=== PATIENT | male | born 1970 | race African-American/Black ===

== ENCOUNTER 2016-10-12 16:51 | Emergency (ER) | payer OTHER ==
[~2016-10-12] VITALS: Ht 177.8 cm; Wt 86.2 kg
--- NOTE | 2016-10-12 19:32 | ED ANKLE/FOOT INJURY COMPLAINT ---
History of Present Illness General Chief Complaint: Foot or Ankle Injury Stated Complaint: SORE TO R FOOT Source: patient Exam Limitations: no limitations Vital Signs & Intake/Output Vital Signs & Intake/Output Vital Signs Date Time Temp Pulse Resp B/P B/P Pulse O2 O2 Flow FiO2 Mean Ox Delivery Rate 10/12 2130 96.8 68 14 152/92 10/127 142/88 10/12 1917 99 Room Air 10/12 1658 98.4 103 18 176/100 99 Room Air ED Intake and Output 10/13 0000 10/12 1200 Intake Total Output Total Balance Patient 190 lb Weight Weight Reported by Patient Measurement Method Allergies Coded Allergies: No Known Allergies (10/12/16) Reconcile Medications Doxycycline Hyclate 100 MG TABLET 1 TAB PO BID TOE PAIN Ibuprofen 800 MG TABLET 1 TAB PO TID PAIN Triage Note: PT TO ED FOR A "SORE TO MY BIG RIGHT TOE FOR A FEW WEEKS". Triage Nurses Notes Reviewed? yes Occurred: just prior to arrival Duration: day(s):, constant, continues in ED Timing: recent history Severity: moderate, severe Pain/Injury Location: Right: 1st toe. No Modifying Factors: none HPI: 46-year-old male comes into emergency room with complaints of right great toe pain. Symptoms of a going on for a few weeks. Patient reports that he does not recall any trauma. Denies any fever chills vomiting. Denies any prior history of gout. Nothing seems to make the symptoms better or worse. Denies any other associated symptoms. 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 He did not have any trauma to this area. He denies any surgeries to this area. He had to have surgery to remove part of the bone. (KATHLEEN IRELAND) Past History Travel History Traveled to [place] past 21 day No Medical History Any Pertinent Medical History? none Neurological: NONE EENT: NONE Cardiovascular: hypertension Respiratory: NONE Gastrointestinal: NONE Hepatic: NONE Renal: NONE Musculoskeletal: NONE Psychiatric: NONE Endocrine: diabetes Blood Disorders: NONE Cancer(s): NONE Other Medical Hx: osetmyelitis right clavicle Surgical History Surgical History: none Psychosocial History What is your primary language Georgian Tobacco Use: Never used ETOH Use: occasional use Illicit Drug Use: denies illicit drug use Family History Hx Contributory? No (KATHLEEN IRELAND) Review of Systems Review of Systems Constitutional: Reports: no symptoms. EENTM: Reports: no symptoms. Respiratory: Reports: no symptoms. Cardiovascular: Reports: no symptoms. GI: Reports: no symptoms. Genitourinary: Reports: no symptoms. Musculoskeletal: Reports: see HPI. Skin: Reports: no symptoms. Neurological/Psychological: Reports: no symptoms. Hematologic/Endocrine: Reports: no symptoms. Immunologic/Allergic: Reports: no symptoms. All Other Systems: Reviewed and Negative (KATHLEEN IRELAND) Physical Exam Physical Exam General Appearance: well developed/nourished Head: atraumatic Eyes: Bilateral: normal appearance. Ears, Nose, Throat: normal ENT inspection, hearing grossly normal Neck: normal inspection Cardiovascular/Respiratory: no respiratory distress Back: normal inspection Leg/Knee/Thigh Left: normal inspection Leg/Knee/Thigh Right: normal inspection Foot Right: soft tissue tenderness, swelling (right great toe), no erythema, full range of motion, no pain with ROM, cap refill intact, dorsalis pedis 2+ Neuro/Vascular: normal motor function, normal sensation Tendon: normal tendon function Psychiatric: awake, alert, oriented x 3 Skin: intact, normal color, warm/dry (KATHLEEN IRELAND) Progress Differential Diagnosis: cellulitis, septic arthritis, gout, fracture, dislocation, sprain, contusion, compartmental syndrome, osteomyelitis Plan of Care: Orders Procedure Date/time Status [facility] SED RATE 10/13 1947 Complete C-REACTIVE PROTEIN 10/13 1947 Complete CBC WITHOUT DIFFERENTIAL 10/13 1947 Complete BASIC METABOLIC PANEL 10/13 1947 Complete Current Medications Sig/Nova Start time Last Medication Dose Stop Time Status Admin Amlodipine Besylate 5 MG ONCE ONE 10/12 1899 CAN (Norvasc) 10/12 1900 Laboratory Tests 10/12/162021: Anion Gap 10, Estimated GFR > 60, BUN/Creatinine Ratio 15.8, Glucose 80, Calcium 9.6, C-Reactive Prot, Quant 1.9 H, CBC w Diff NO MAN DIFF REQ, RBC 4.28 L, MCV 97.1 H, MCH 32.2 H, RDW 12.7, MPV 7.9, Gran % 54.7, Lymphocytes % 31.6, Monocytes % 7.9, Eosinophils % 5.2 H, Basophils % 0.6, Absolute Granulocytes 4.3, Absolute Lymphocytes 2.5, Absolute Monocytes 0.6, Absolute Eosinophils 0.4, Absolute Basophils 0, PUBS MCHC 33.2, ESR Westergren 36 H Diagnostic Imaging: Viewed by Me: Radiology Read. Discussed w/RAD: Radiology Read. Radiology Impression: EXAM TYPE: RAD - XRY-FOOT COMPLETE, R EXAMINATION: XR FOOT , RIGHT CLINICAL INFORMATION: Right great toe pain. COMPARISON: None. TECHNIQUE: AP, lateral, and oblique views of the right foot. FINDINGS: Multiple images of the right foot demonstrate subtle cortical lucencies along the medial aspect of the right great toe. This finding is nonspecific but may reflect cortical erosions, such as in the setting of gout. No soft tissue deposits or soft tissue calcifications are identified. There is no acute osseous or articular abnormality of the right foot. Specifically, no acute fracture or dislocation of the right foot is identified. There are vascular calcifications. No radiopaque foreign bodies are identified. IMPRESSION: Subtle cortical lucencies along the medial aspect of the right great toe, adjacent to the first metatarsal head. These lucencies may reflect cortical erosions, such as in the setting of gout. Underlying cortical erosion secondary to infection cannot be excluded. Correlate with patient symptomatology and lab values. If there is a clinical concern for acute osteomyelitis, consider correlation with a dedicated MRI of the right foot or nuclear medicine bone scan. DICTATED BY: GERALDO PLUNKETT MD DATE/TIME DICTATED:10/12/161930 AUTOMOTIVE HARDWARE ENGINEER:JAVIER DATE/TIME TRANSCRIBED:1930 Comments: 10/12/2016 9:45:21 PM Patient clinically looks well. Patient is nontoxic-appearing. He does not appear to be septic appearing. Discussed the possibility of septic joint versus gout. At this point time gout would make more sense of the diagnosis. He has a history of osteomyelitis in the past. He is afebrile. Patient was referred to the human resources talent manager for close follow-up. Patient was started on doxycycline but also started on ibuprofen for gout. Patient was instructed to return immediately if any concerns worsening symptoms. CRP and sedimentation rate slightly elevated. White count normal. Patient looks well on exam. Patient will follow up as needed. Reevaluated multiple times and continued to remain in no apparent distress. Patient understands and agrees with plan of care. (CORKY SALAZAR,KATHLEEN) Departure Departure Disposition: HOME OR SELF CARE Condition: Stable Clinical Impression Primary Impression: Pain of right great toe Referrals: ALFREDO ELLISON,LORENZA BEDOYA MD,TRISHA (PCP/Family) Additional Instructions: Taking Motrin as prescribed. Take doxycycline as prescribed. Follow-up with human resources talent manager provided. Return if any concerns worsening symptoms. Please go over all results of today's visit with your primary care doctor. Contact your primary care doctor to let them know you were here in the emergency room. There may be nonspecific findings which may not be related to your visit today here in the emergency room but may require further evaluation and chronic monitoring by your primary care doctor. If you had a laceration today the chance of foreign body always remains. You should follow-up with your primary care doctor for recheck in 3-5 days for a wound check. If you had an x-ray done there is a chance that a fracture could have been missed on initial read and you should follow-up with your primary care doctor for repeat x-rays if symptoms persist. If your blood pressure was elevated here in the emergency room please have rechecked by her primary care doctor within the next 48 hours by your primary care doctor. If you were prescribed a narcotic here in the emergency room or any type of controlled substances you're not allowed to drive while taking this medication or operate any type of heavy machinery. Narcotics can make you feel lightheaded dizziness nausea and can cause constipation. You may need to [employer]et labor union a stool softener. Thank you for choosing [facility] emergency room. Please return to the emergency room immediately if you have any other concerns worsening of symptoms. Departure Forms: Customer Survey General Discharge Information Prescriptions: Current Visit Scripts Ibuprofen 1 TAB PO TID #30 TAB Doxycycline Hyclate 1 TAB PO BID #14 TAB (KATHLEEN IRELAND) PA/LAYER UP Co-Sign Statement Statement: ED Attending supervision documentation- [] I saw and evaluated the patient. I have also reviewed all the pertinent lab results and diagnostic results. I agree with the findings and the plan of care as documented in the PA's/LAYER UP's documentation. [x] I have reviewed the ED Record and agree with the PA's/LAYER UP's documentation. [] Additions or exceptions (if any) to the PAs/LAYER UP's note and plan are summarized below: [] (IRIS FLORES,FEDE Sanders)
--- NOTE | 2016-10-12 19:36 | RADIOLOGY REPORT ---
EXAMINATION: XR FOOT, RIGHT CLINICAL INFORMATION: Right great toe pain. COMPARISON: None. TECHNIQUE: AP, lateral, and oblique views of the right foot. FINDINGS: Multiple images of the right foot demonstrate subtle cortical lucencies along the medial aspect of the right great toe. This finding is nonspecific but may reflect cortical erosions, such as in the setting of gout. No soft tissue deposits or soft tissue calcifications are identified. There is no acute osseous or articular abnormality of the right foot. Specifically, no acute fracture or dislocation of the right foot is identified. There are vascular calcifications. No radiopaque foreign bodies are identified. IMPRESSION: Subtle cortical lucencies along the medial aspect of the right great toe, adjacent to the first metatarsal head. These lucencies may reflect cortical erosions, such as in the setting of gout. Underlying cortical erosion secondary to infection cannot be excluded. Correlate with patient symptomatology and lab values. If there is a clinical concern for acute osteomyelitis, consider correlation with a dedicated MRI of the right foot or nuclear medicine bone scan.
[2016-10-12 20:31] LABS: ABSOLUTE BASOPHIL COUNT 0 /CUMM (0.0-0.2); ABSOLUTE EOSINOPHIL COUNT 0.4 /CUMM (0.0-0.7); ABSOLUTE GRANULOCYTE CT 4.3 /CUMM (1.4-6.5); ABSOLUTE LYMPH COUNT 2.5 /CUMM (1.2-3.4); ABSOLUTE MONOCYTE COUNT 0.6 /CUMM (0.10-0.60); BASOPHIL % 0.6 % (0.0-2.0); EOSINOPHIL % 5.2 % (0-5); GRANULOCYTE % 54.7 % (42.2-75.2); HEMATOCRIT 41.6 % (42-52); MEAN CORPUSCULAR HGB 32.2 PG (27.0-31.0); MEAN CORPUSCULAR HGB CONC 33.2 G/DL (33.0-37.0); MEAN CORPUSCULAR VOLUME 97.1 FL (80.0-94.0); MEAN PLATELET VOLUME 7.9 FL (7.4-10.4); PLATELET COUNT 317 /CUMM (130-400); RBC DISTRIBUTION WIDTH 12.7 % (11.5-14.5); RED BLOOD CELL CT 4.28 /CUMM (4.70-6.10); WHITE BLOOD CELL COUNT 7.8 /CUMM (4.8-10.8)
[2016-10-12 21:30] VITALS: BP 152/92
[2016-10-12] MEDS ORDERED: IBUPROFEN800 M1 PO (21:41)
[2016-10-12] MEDS ORDERED: DOXYCYCLINE HY100 M4 PO (21:41)
== END 2016-10-12 21:56 ==
LOC: ERH 16:51
PROVIDERS: Physician Assistant Medical
DX: M79.674 Pain in right toe(s) (principal)
CPT/HCPCS: 73630-RT